=== PATIENT | female | born 1990 | race Caucasian/White ===

== ENCOUNTER 2018-01-20 13:45 | Inpatient (IN) | payer MEDICAID ==
[~2018-01-20] VITALS: Ht 157.5 cm; Wt 113.4 kg
[2018-01-20] MEDS ORDERED: NALOXONE HCL 0.4 MG/ML 1ML VIAL IM PRN (14:00)
[2018-01-20] MEDS ORDERED: METHYLERGONOVINE MALEATE 0.2 MG/ML IM PRN (14:00)
[2018-01-20] MEDS ORDERED: CARBOPROST TROMETHAMINE 250 MCG/ML AMPUL IM PRN (14:00)
[2018-01-20] MEDS: DEXT 5%/LR + PITOCIN 20UNITS/L 1,000 ML IV SCH ×2 (14:18→14:36)
[2018-01-20 14:37] LABS: CLARITY URINE CLEAR (CLEAR); COLOR URINE DARK YELLOW (YELLOW); KETONES URINE 1+ (NEGATIVE); LEUKOCYTE ESTERASE URINE NEGATIVE (NEGATIVE); NITRITE URINE NEGATIVE (NEGATIVE); OCCULT BLOOD URINE 2+ (NEGATIVE); PH URINE 5.5 (4.5-8.0); PROTEIN URINE 1+ (NEGATIVE); SPECIFIC GRAVITY URINE 1.023 (1.005-1.030); UROBILINOGEN URINE 0.2 E.U./dL (0.2-1.0)
[2018-01-20] MEDS ORDERED: RHO(D) IMMUNE GLOBULIN 300 MCG/SYR IM PRN (14:45)
[2018-01-20] MEDS ORDERED: IBUPROFEN 400MG TABLET PO PRN (14:45)
[2018-01-20] MEDS ORDERED: IBUPROFEN 800MG TABLET PO PRN (14:45)
[2018-01-20 14:51] LABS: BASOPHILS % 0.3 % (0.0-2.0); EOSINOPHILS % 0.1 % (0.0-5.0); HEMATOCRIT. 36.2 % (36.0-48.0); HEMOGLOBIN. 11.9 g/dL (12.0-16.0); LYMPHOCYTES % 7.4 % (20.0-50.0); MEAN CORPUSCULAR VOLUME 88.4 fL (81.0-99.0); MEAN PLATELET VOLUME 10.3 fl (7.4-10.4); MONOCYTES % 4.6 % (2.0-8.0); NEUTROPHILS % 87.6 % (40.0-76.0); PLATELET 229 x1000/uL (130-400); RED CELL DISTRIBUTION WIDTH 14.4 % (11.6-14.6)
[2018-01-20 14:57] LABS: PARTIAL THROMBOPLASTIN TIME 25.7 sec (23.4-31.0); PROTHROMBIN TIME 10.1 sec (9.4-11.6)
[2018-01-20 15:01] LABS: *AMPHETAMINES SCREEN URINE NEGATIVE (NEGATIVE); *BARBITURATES SCREEN URINE NEGATIVE (NEGATIVE); *BENZODIAZEPINES SCREEN URINE NEGATIVE (NEGATIVE); *COCAINE SCREEN URINE NEGATIVE (NEGATIVE); CANNABINOID URINE SCREEN NEGATIVE (NEGATIVE); METHADONE URINE SCREEN NEGATIVE (NEGATIVE); OPIATES URINE SCREEN NEGATIVE (NEGATIVE); PHENCYCLIDINE URINE SCREEN NEGATIVE (NEGATIVE)
[2018-01-20 15:20] VITALS: BP 100/58
[2018-01-20 15:40] LABS: CHLORIDE 105 mEq/L (98-107)
[2018-01-20 16:00] VITALS: BP 105/58
[2018-01-20 16:03] LABS: HEPATITIS B SURFACE ANTIGEN NEGATIVE; RUBELLA IGG 38.5 IU/mL (4.99-10)
[2018-01-20 19:45] VITALS: BP 95/58
[2018-01-20] MEDS ORDERED: DEXT 5%/LR + PITOCIN 20UNITS/L 1,000 ML IV SCH (21:00)
[2018-01-20 23:30] VITALS: BP 123/77
[2018-01-21 07:58] VITALS: BP 94/51
[2018-01-21 09:02] LABS: BASOPHILS % 0.5 % (0.0-2.0); EOSINOPHILS % 0.3 % (0.0-5.0); HEMATOCRIT. 26.3 % (36.0-48.0); HEMOGLOBIN. 8.8 g/dL (12.0-16.0); LYMPHOCYTES % 23.8 % (20.0-50.0); MEAN CORPUSCULAR HEMOGLOBIN 29.8 pg (28.0-32.0); MEAN CORPUSCULAR VOLUME 88.5 fL (81.0-99.0); MEAN PLATELET VOLUME 9.5 fl (7.4-10.4); MONOCYTES % 5.5 % (2.0-8.0); NEUTROPHILS % 69.9 % (40.0-76.0); PLATELET 179 x1000/uL (130-400); RED BLOOD CELL COUNT 2.97 mill/uL (4.2-5.4); RED CELL DISTRIBUTION WIDTH 14.6 % (11.6-14.6)
[2018-01-21] MEDS: PRENATAL VIT/FE FUMARATE/FA TABLET PO SCH (09:32)
[2018-01-21] MEDS: FERROUS SULFATE 325MG TABLET PO SCH ×2 (13:05→18:04)
[2018-01-21 16:12] VITALS: BP 105/66
[2018-01-21 20:45] VITALS: BP 96/65
[2018-01-22] VITALS: BP 112/56
[2018-01-22 07:32] VITALS: BP 105/64
[2018-01-22] MEDS: PRENATAL VIT/FE FUMARATE/FA TABLET PO SCH (08:41)
[2018-01-22] MEDS: FERROUS SULFATE 325MG TABLET PO SCH (08:41)
== END 2018-01-22 13:50 | disposition home or self-care (01) | DRG 561 ==
LOC: L&D 13:45 → 7EST PP/OB 15:35
PROVIDERS: ADMIT Obstetrics & Gynecology; ATTEND Obstetrics & Gynecology
DX: Z39.0 Encounter for care and examination of mother immediately after delivery (principal)
CPT/HCPCS: 36415; 80053; 80305; 81003; 85025; 85610; 85730; 86592; 86703; 86762; 86850; 86900; 87340; J2590; J7120